=== PATIENT | female | born 1965 | race Caucasian/White ===

== ENCOUNTER 2024-06-08 11:35 | Inpatient (IN) | payer OTHER, SELFPAY ==
[2024-06-08 03:46] VITALS: BP 189/98
[2024-06-08 04:19] LABS: % Basophils 0.6 % (0-2); % Immature Granulocytes 0.2 % (0-0.5); % Lymphocytes 17.3 % (20.5-51.1); % Monocytes 16.4 % (1.7-9.3); % Neutrophils 65.5 % (42.2-75.2); Absolute Lymphocytes 0.9 10^3/uL (1.2-3.4); Absolute Monocytes 0.9 10^3/uL (0.1-0.6); Absolute Neutrophils 3.6 10^3/uL (1.4-6.5); Hematocrit 41.8 % (37.0-47.0); Hemoglobin 14.4 g/dL (12.0-16.0); Mean Corp Hgb Conc. 34.4 g/dL (33.0-37.0); Mean Corpuscular Hgb 31.2 pg (27.0-31.0); Mean Corpuscular Volume 90.5 fL (81.0-99.0); Mean Platelet Volume 10.3 fL (7.4-10.4); Nucleated Red Blood Cells % 0 %; Platelet Count 164 10^3/uL (130-400); Red Blood Cell Count 4.62 10^6/uL (4.20-5.40); Red Cell Dist. Width 12.2 % (11.5-14.5); White Blood Cell Count 5.4 10^3/uL (4.8-10.8)
[2024-06-08 04:25] LABS: COVID-19 Antigen Negative (Negative)
[2024-06-08 04:42] LABS: ALT (SGPT) 18 U/L (0-35); AST (SGOT) 39 U/L (14-36); Alkaline Phosphatase 65 U/L (38-126); Blood Urea Nitrogen 9 mg/dl (7-17); Calcium 8.5 mg/dl (8.4-10.2); Carbon Dioxide 23 mmol/L (22-30); Chloride 92 mmol/L (98-107); Glucose 130 mg/dl (70-99); Potassium 4.1 mmol/L (3.5-5.1); Sodium 123 mmol/L (135-145); Total Bilirubin 0.5 mg/dl (0.2-1.3); Total Protein 6.3 g/dl (6.3-8.2); eGFR > 60.00
--- NOTE | 2024-06-08 07:32 | ED.GENMED ---
History of Present Illness
General
Chief Complaint: Cough
Source: patient
Exam Limitations: none
Time Seen by Provider: 06/08/24 07:23
History of Present Illness
History of Present Illness:
58-year-old female complaining of cough congestion flulike symptoms. Mild weakness.
Past History
Past History
ED Past Medical History: HTN
Review of Systems
Review of Systems
All Other Systems: Not applicable
Respiratory: Reports cough
Cardiac: Reports no symptoms
ABD/GI: Reports no symptoms
Phy Exam
Physical Exam
Physical Exam:
GENERAL: Alert and oriented in no apparent distress
EYE: Orbits normal.
NECK: Supple, no significant adenopathy.
ENT: Pharynx without erythema
CARDIAC: Regular rate and rhythm without any obvious murmurs.
LUNGS: Clear breath sounds,normal
ABDOMEN: Soft, without focal tenderness or distention
NEUROLOGICAL: Alert and oriented , grossly non-focal
SKIN: Warm and dry, no rash or lesion, no discoloration, skin intact.
MUSCULOSKELETAL: No edema,no deformity.Good color
PSYCH: Normal and appropriate interaction.
Course
Orders/Labs/Results
Orders:
Orders
06/08/24 03:48
Electrocardiogram (*1) Urgent
Reason for Study: Shortness of Breath
EKG- Treatment ONCE
Chest [CR Chest - 2 Views ] Urgent
Comment:
Reason For Exam: sob/chest discomfort
06/08/24 04:03
COVID-19 Antigen Urgent
Source: Nasal Swab
Complete Blood Count/With Diff Urgent
Comprehensive Metabolic Panel Urgent
Influenza A+B Rapid Molecular Urgent
LESTER Source: Nasal Swab
Specimen Description:
06/08/24 07:31
IV Insert/Care/Rem.- Treatment PRN
06/08/24 10:10
Lisinopril [Zestril] 40 mg PO NOW STA
Oseltamivir Phosphate [Tamiflu] 75 mg PO NOW STA
Abnormal Lab Results
06/08/24
04:03
MCH 31.2 H pg
(27.0-31.0)
Absolute Lymphs (auto) 0.9 L 10^3/uL
(1.2-3.4)
Absolute Monos (auto) 0.9 H 10^3/uL
(0.1-0.6)
Lymphocytes % 17.3 L %
(20.5-51.1)
Monocytes % 16.4 H %
(1.7-9.3)
Sodium 123 L mmol/L
(135-145)
Chloride 92 L mmol/L
(98-107)
Creatinine 0.4 L mg/dL
(0.6-1.0)
Glucose 130 H mg/dl
(70-99)
AST 39 H U/L
(14-36)
06/08/24 04:03
06/08/24 04:03
Vital Signs
Initial and Last Documented VS:
Initial Vital Signs
Temp Pulse Resp BP Pulse Ox
99.3 F 71 19 189/98 97
06/08/24 03:46 06/08/24 03:46 06/08/24 03:46 06/08/24 03:46 06/08/24 03:46
Last Documented Vital Signs
Temp Pulse Resp BP Pulse Ox
99.3 F 75 16 159/89 98
06/08/24 03:46 06/08/24 10:00 06/08/24 10:00 06/08/24 09:13 06/08/24 07:45
MDM/Problems Addressed
Differential Diagnosis Includes:
Patient with influenza positive. No respiratory distress. However hyponatremic. Suspect she is drinking too much free water. She is not on a diuretic. Warrants inpatient management
*Radiology
Radiology exam reviewed: radiology read reviewed (neg)
*Pulse Oximetry
Patient hypoxic: no
*Critical Care Note
Total Time (30-74mins, 75-104mins- exclusive of procedures): Not Applicable
ED Attending Note
-
Portions of this chart may have been created with voice recognition software.� Occasional wrong word or��sound alike� substitutions may have occurred due to the inherent limitations of voice recognition software.
Discharge Plan
Departure
Patient Disposition: Admit
Date of Disposition: 06/08/24
Time of Disposition: 08:20
Presentation/result/management discussed w/ accepting MD/DO: Hospitalist
Discharge Problem:
Hyponatremia , Influenza
Prescriptions:
No Action
lisinopril 40 mg Tablet
40 mg PO DAILY
Referrals:
Maddy Stone CRNP [Family Provider] -
Interventions
Interventions:
*Risk Screen - Suicide Last Done: 06/08/24 03:46
*General Assessment Last Done: 06/08/24 07:46
*Neglect/Abuse Screening Last Done: 06/08/24 03:46
ED- Fall Risk Assessment Last Done: 06/08/24 08:45
*ED COVID-19 Vaccine History Last Done: 06/08/24 07:46
ED- Pulmonary Assessment Last Done: 06/08/24 07:46
Discharge Date and Time
Print Language: [place]
[2024-06-08 07:45] VITALS: BP 182/83
[2024-06-08 09:13] VITALS: BP 159/89
--- NOTE | 2024-06-08 10:11 | HPS.HSE ---
Family Physician
-
Family Physician: Maddy Stone
Chief Complaint
-
weakness
History of Present Illness
58-year-old female past medical history as below is presenting from home with weakness. Patient went to see her primary doctor on Tuesday for regular checkup. Patient with history of hypertension. Patient states subsequently afterwards she was
feeling weakness with cough and significantly poor appetite. Has fevers and chills at home. Denies any nausea vomiting or diarrhea. States she was drinking 2 large Gatorade bottles at home. States of light yellow-colored urine. Denies
lightheaded and dizziness. Patient with history of tobacco abuse and continues to smoke cigarettes on a daily basis. States takes lisinopril for blood pressure medication. Also states of cough. States of dry cough without any phlegm production.
Medical History
Past Medical History
Past Medical History: Reports Other
Additional Past Medical History:
Primary hypertension
Tobacco abuse daily basis
Past Surgical History: Reports None
Social History
Tobacco: Smoker
Alcohol: Occasional
Living: Alone
Family History
Family History: Not pertinent
Allergies / Home Medications
Allergies reflects when Allergies were last updated in [facility].
Home Medications with original date entered in [facility]
Allergy/Medication List:
Allergies
Allergy/AdvReac Type Severity Reaction Status Date / Time
No Known Allergies Allergy Unverified 06/08/24 03:46
Home Medications
lisinopril 40 mg tablet 40 mg PO DAILY 06/08/24
Review of Systems
-
History Source: Patient
A 12 point ROS was completed and negative except as noted: Yes
Physical Exam
Vital Signs
Vital Signs
Temp Pulse Resp BP Pulse Ox
99.3 F 75 16 159/89 98
06/08/24 03:46 06/08/24 10:00 06/08/24 10:00 06/08/24 09:13 06/08/24 07:45
Physical Exam
General: Well Developed, Well Nourished and No Apparent Distress
HEENT: NormoCephalic, Moist mucous membranes and Atraumatic
Respiratory: Decreased Breath Sounds
Cardiac: S1/S2 and Regular Rhythm; No Murmur or Rub
GI: Soft, Non Tender, Non Distended and Normal Bowel Sounds; No Organomegaly
Rectal: Deferred by Provider
Genito-urinary: No López
Musculoskeletal: No Clubbing, No Cyanosis and No Edema
Skin: No Rash
Neuro: Awake, Alert, Oriented, AO x 3, No Motor Deficits and Nonfocal/grossly intact
Psych: Calm
Laboratory Results
-
06/08/24 04:03
06/08/24 04:03
Laboratory Results
Total Bilirubin 0.5 mg/dl (0.2-1.3) 06/08/24 04:03
AST 39 U/L (14-36) H 06/08/24 04:03
ALT 18 U/L (0-35) 06/08/24 04:03
Alkaline Phosphatase 65 U/L (38-126) 06/08/24 04:03
Data Reviewed
-
Lab Data: Labs Reviewed by me, Discussed with Patient and Discussed with Family
Impression/Plan
-
#Acute influenza A infection
Tylenol as needed
Symptomatic management
Bronchodilators as needed
Currently on room air
Chest x-ray negative for acute infiltrate.
Start patient on Tamiflu
#Hyponatremia
Likely secondary to increase in free water intake
Check urine sodium and urine osmolality and sodium osmolality
Fluid restriction
Repeat BMP
Nephrology evaluation
#Primary hypertension
Continue with lisinopril
Monitor blood pressure
#Daily tobacco abuse
Counseled on complete tobacco cessation.
Patient verbalized understanding
Offered patch nicotine for patient refused
DVT prophylaxis with Lovenox
Discussed with patient older sister at bedside in detail
I spent a total of 80 minutes with the patient or on the floor. More than 50% of this time involved counseling and coordination of care.
[2024-06-08] MEDS: ZESTRIL 40 MG PO (11:16)
[2024-06-08] MEDS: TAMIFLU 75 MG PO ×2 (11:16→20:05)
[2024-06-08 13:26] LABS: Blood Urea Nitrogen 10 mg/dl (7-17); Calcium 8.6 mg/dl (8.4-10.2); Carbon Dioxide 26 mmol/L (22-30); Chloride 87 mmol/L (98-107); Estimated Creatinine Clearance 110 ml/min; Glucose 112 mg/dl (70-99); Potassium 4.1 mmol/L (3.5-5.1); Sodium 123 mmol/L (135-145); eGFR > 60.00
[2024-06-08 13:39] LABS: Osmolality Urine 714 mOsm/kg (300-900); Urine Sodium 164 mmol/L (30-90)
--- NOTE | 2024-06-08 14:12 | W.CON.NEPH ---
Consultation
-
Date/Time Consultation Requested: June 08, 2024 at 12 PM
Date/Time Consultation Performed: June 08, 2024 at 2 PM
Requesting Provider: Dr. Rajan
Performing Provider: Dr. Kane Ramos
Reason for Consultation: Hyponatremia
Medical History
-
Chief Complaint: Shortness of breath
History of Present Illness:
58-year-old female past medical history as below is presenting from home with weakness. Patient went to see her primary doctor on Tuesday for regular checkup. Patient with history of hypertension. Patient states subsequently afterwards she was
feeling weakness with cough and significantly poor appetite. Has fevers and chills at home.
Diagnosed with influenza
Renal consult for hyponatremia of 123
She drinks 15-20 beers daily and smokes cigarettes.
History of hypertension on lisinopril recently increased for hypertension uncontrolled.
Past Medical History
Hypertension tobacco use alcohol use
Social History
Tobacco: Smoker
Alcohol: Chronic Alcoholic
Drug: None
Family History
Family History: Not Pertinent
Allergies / Home Medications
Allergy/AdvReac Type Severity Reaction Status Date / Time
No Known Allergies Allergy Unverified 06/08/24 03:46
�Medication �Instructions �Recorded �Confirmed �Type
lisinopril 40 mg tablet 40 mg PO DAILY 06/08/24 06/08/24 History
Review of Systems
-
Mild shortness of breath
All other systems: Negative unless noted
Physical Exam
Vital Signs
Vital Signs
Temp Pulse Resp BP Pulse Ox
99.3 F 74 16 163/80 98
06/08/24 03:46 06/08/24 11:16 06/08/24 10:00 06/08/24 11:16 06/08/24 07:45
Lab Results
WBC 5.4 10^3/uL (4.8-10.8) 06/08/24 04:03
RBC 4.62 10^6/uL (4.20-5.40) 06/08/24 04:03
Hgb 14.4 g/dL (12.0-16.0) 06/08/24 04:03
Hct 41.8 % (37.0-47.0) 06/08/24 04:03
Plt Count 164 10^3/uL (130-400) 06/08/24 04:03
Sodium 123 mmol/L (135-145) L 06/08/24 13:10
Potassium 4.1 mmol/L (3.5-5.1) 06/08/24 13:10
Chloride 87 mmol/L (98-107) L 06/08/24 13:10
Carbon Dioxide 26 mmol/L (22-30) 06/08/24 13:10
BUN 10 mg/dl (7-17) 06/08/24 13:10
Creatinine 0.4 mg/dL (0.6-1.0) L 06/08/24 13:10
eGFR > 60.00 06/08/24 13:10
Glucose 112 mg/dl (70-99) H 06/08/24 13:10
Calcium 8.6 mg/dl (8.4-10.2) 06/08/24 13:10
Albumin 4.0 g/dl (3.5-5.0) 06/08/24 04:03
Physical Exam
General no acute distress
HEENT no cephalic atraumatic extraocular muscle intact no scleral icterus no JVD neck supple
lungs clear to auscultation bilateral
heart regular S1-S2 positive
abdomen soft nontender positive bowel sounds
extremities no edema pulses present bilateral
Neurologically nonfocal alert and oriented x 3
Skin no lesions no abrasions no petechiae
Psych normal affect no bizarre behavior
Data Reviewed
-
Radiology: Image Personally Visualized and interpreted (Chest x-ray no infiltrate no signs of heart failure)
Assessment/Plan
-
Impression.
Hyponatremia. 123
Influenza.
Alcohol use. 15-20 beers per week
Tobacco use.
Plan.
Sodium 123 on admission repeat again 123.
Urine osmolality 711 with a urine sodium of 116 consistent with SIADH.
I will give 7.5 mg of tolvaptan.
Continue fluid restriction.
Tamiflu
BMP rechecked this evening.
[2024-06-08] MEDS: SAMSCA 7.5 MG PO (15:00)
[2024-06-08 15:12] LABS: Osmolality Serum 260 mOsm/kg (275-300)
[2024-06-08 16:51] VITALS: BMI 28.9
[2024-06-08 16:52] VITALS: BP 185/100
--- NOTE | 2024-06-08 17:00 | PTCARENOTE ---
Received from ED, temp 102.7, BP 185/110. Lungs with diminished breath sounds. Oriented to room, call burnette in reach. Given tylenol, will recheck temp & BP.
[2024-06-08 17:50] VITALS: BP 167/85
[2024-06-08] MEDS: LOVENOX 40 MG SC (18:13)
[2024-06-08] MEDS: TYLENOL 650 MG PO (18:14)
[2024-06-08] MEDS: THIAMINE INJECTION 200 MG IV (20:05)
[2024-06-08 23:06] VITALS: BP 141/90
[2024-06-08] MEDS: ANESTHETIC LOZENGE 1 LOZENGE PO (23:31)
[2024-06-09 07:15] VITALS: BP 111/81
[2024-06-09] MEDS: ZESTRIL 40 MG PO (08:20)
[2024-06-09] MEDS: FOLVITE 1 MG PO (08:21)
[2024-06-09] MEDS: THIAMINE INJECTION 200 MG IV ×2 (08:21→19:50)
[2024-06-09] MEDS: TAMIFLU 75 MG PO ×2 (08:21→19:50)
--- NOTE | 2024-06-09 09:23 | PTCARENOTE ---
Assumed care of pt from previous nurse. Pt denies pain. Pt lungs are diminished, coarse. Pt call burnette is within reach, pt rings nury. will cont to monitor.
--- NOTE | 2024-06-09 10:36 | W.PN.HOSP.TC ---
Today's Communication/Plan
-
Await repeat BMP
Continue with fluid restriction
Continue with Tamiflu
Monitor blood pressure
Monitor p.o. intake
Assessment / Plan
Assessment / Plan
#Acute influenza A infection
Tylenol as needed
Symptomatic management
Bronchodilators as needed
Currently on room air
Chest x-ray negative for acute infiltrate.
Start patient on Tamiflu complete 5d c ourse
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
Likely secondary to increase in free water intake
Status post dose of Samsca. Repeat BMP pending.
Fluid restriction
Nephrology recs
#Primary hypertension
Continue with lisinopril
Monitor blood pressure
#Daily tobacco abuse
Counseled on complete tobacco cessation.
Patient verbalized understanding
Offered patch nicotine for patient refused
#Alcohol usage
MSAS protocol
DVT prophylaxis with Lovenox
Anticipated Discharge: 24 - 48 hours
Subjective/Interval History
-
Date of Service: June 09, 2024
States feeling better
States appetite is slowly improving
Objective Data
-
Labs:
Laboratory Results
06/09/24 06/09/24
00:13 09:00
Sodium Cancelled Pending
Potassium Cancelled Pending
Chloride Cancelled Pending
Carbon Dioxide Cancelled Pending
BUN Cancelled Pending
Creatinine Cancelled Pending
Glucose Cancelled Pending
Calcium Cancelled Pending
Vital Signs:
Vital Signs
Temp Pulse Resp BP Pulse Ox
99.3 F 100 16 111/81 96
06/09/24 07:15 06/09/24 08:20 06/09/24 07:15 06/09/24 08:20 06/09/24 08:30
I&O
06/08/24 06/09/2425
06:59 06:59 06:59
Intake Total 480 / 480 660 / 660
Balance 480 / 480 660 / 660
Physical Exam
-
General: Well Developed and No Apparent Distress
HEENT: Normocephalic, Atraumatic and Moist Mucous Membranes
Respiratory: Clear to Auscultation
Cardiac: Regular Rhythm and S1/S2; Negative Murmur, Rub or Gallop
GI: Soft, Nontender, Nondistended and Normal Bowel Sounds; Negative Organomegaly
Rectal: Deferred by Provider
Musculoskeletal: No Clubbing, No Cyanosis and No Edema
Skin: Negative Rash
Neuro: Awake, Alert, Oriented, AO x 3, No Motor Deficits and Nonfocal/Grossly Intact
Psych: Calm
Data Reviewed
-
Total Time Spent with Patient (in minutes): 55
[2024-06-09 10:58] LABS: Blood Urea Nitrogen 14 mg/dl (7-17); Calcium 8.7 mg/dl (8.4-10.2); Carbon Dioxide 25 mmol/L (22-30); Chloride 93 mmol/L (98-107); Estimated Creatinine Clearance 108 ml/min; Glucose 155 mg/dl (70-99); Potassium 3.9 mmol/L (3.5-5.1); Sodium 128 mmol/L (135-145); eGFR > 60.00
--- NOTE | 2024-06-09 12:22 | W.PN.NEPH.PH ---
Today's Communication / Plan
-
Samsca again x 1 today and otherwise okay for discharge on fluid restriction outpatient
Assessment/Plan
-
Impression.
Hyponatremia. 123
Influenza.
Alcohol use. 15-20 beers per week
Tobacco use.
Plan.
Sodium 123 on admission repeat again 123.
Urine osmolality 711 with a urine sodium of 116 consistent with SIADH.
Continue fluid restriction.
Tamiflu
Sodium improved to 128.
I will give 1 more dose of Samsca today and will be okay for discharge from my standpoint.
-
-
Date of Service: June 09, 2024
CC / HPI / ROS
-
She is without shortness of breath or chest pain.
Sodium has improved.
Labs
-
Labs:
WBC 5.4 10^3/uL (4.8-10.8) 06/08/24 04:03
RBC 4.62 10^6/uL (4.20-5.40) 06/08/24 04:03
Hgb 14.4 g/dL (12.0-16.0) 06/08/24 04:03
Hct 41.8 % (37.0-47.0) 06/08/24 04:03
Plt Count 164 10^3/uL (130-400) 06/08/24 04:03
Sodium 128 mmol/L (135-145) L 06/09/24 09:00
Potassium 3.9 mmol/L (3.5-5.1) 06/09/24 09:00
Chloride 93 mmol/L (98-107) L 06/09/24 09:00
Carbon Dioxide 25 mmol/L (22-30) 06/09/24 09:00
BUN 14 mg/dl (7-17) 06/09/24 09:00
Creatinine 0.6 mg/dL (0.6-1.0) 06/09/24 09:00
eGFR > 60.00 06/09/24 09:00
Glucose 155 mg/dl (70-99) H 06/09/24 09:00
Calcium 8.7 mg/dl (8.4-10.2) 06/09/24 09:00
Albumin 4.0 g/dl (3.5-5.0) 06/08/24 04:03
Physical Exam
-
Vital Signs:
Vital Signs
Temp Pulse Resp BP Pulse Ox
99.3 F 100 16 111/81 96
06/09/24 07:15 06/09/24 08:20 06/09/24 07:15 06/09/24 08:20 06/09/24 08:30
Respiratory:: Bilateral: CTA
Lung Excursion:: Normal
Abdomen:: Soft
Bowel Sounds:: Normal
Extremity Edema:: None: Bilateral:
López Catheter: No
[2024-06-09] MEDS: SAMSCA 15 MG PO (13:10)
[2024-06-09 15:30] VITALS: BP 122/70
--- NOTE | 2024-06-09 15:35 | CM ---
CM reviewed chart, patient seen bedside, patient positive for Influenza A. Patient resides independently in a first floor condo, no steps to enter. Patient is independent with ADLs/IADLs, denies DME, VN, SNF history. Patient confirms PCP Maddy
Bertha, pharmacy [facility], confirms prescription coverage. CM will continue to follow for all discharge planning needs.
Plan; home no needs anticipated.
[2024-06-09] MEDS: LOVENOX 40 MG SC (17:57)
[2024-06-09 23:00] VITALS: BP 120/78
[2024-06-10 05:39] LABS: Blood Urea Nitrogen 21 mg/dl (7-17); Calcium 8.6 mg/dl (8.4-10.2); Carbon Dioxide 30 mmol/L (22-30); Chloride 97 mmol/L (98-107); Estimated Creatinine Clearance 108 ml/min; Glucose 109 mg/dl (70-99); Potassium 4.1 mmol/L (3.5-5.1); Sodium 133 mmol/L (135-145); eGFR > 60.00
[2024-06-10 07:36] VITALS: BP 115/74
[2024-06-10] MEDS: TAMIFLU 75 MG PO (08:20)
[2024-06-10] MEDS: THIAMINE INJECTION 200 MG IV (08:21)
[2024-06-10] MEDS: ZESTRIL 40 MG PO (08:21)
[2024-06-10] MEDS: FOLVITE 1 MG PO (08:21)
--- NOTE | 2024-06-10 10:06 | W.PN.HOSP.TC ---
Today's Communication/Plan
-
dc home
Assessment / Plan
Assessment / Plan
#Acute influenza A infection
Tylenol as needed
Symptomatic management
Bronchodilators as needed
Currently on room air
Chest x-ray negative for acute infiltrate.
Start patient on Tamiflu complete 5d course
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
Likely secondary to increase in free water intake
Status post dose of Samsca x 2. Na at 133. OP repeat bmp.
Fluid restriction
Nephrology recs
#Primary hypertension
Continue with lisinopril
Monitor blood pressure
#Daily tobacco abuse
Counseled on complete tobacco cessation.
Patient verbalized understanding
Offered patch nicotine for patient refused
#Alcohol usage
MSAS protocol
DVT prophylaxis with Lovenox
More than 30 minutes spent in discharge including
Final examination of the patient
Summarizing hospital stay
Instructions for continuing care to all relevant caregivers
Preparation of discharge records, prescriptions, and referral forms
Total time spent (in minutes): 52
Anticipated Discharge: Today
Subjective/Interval History
-
Date of Service: June 10, 2024
feeling better
tolerating diet
Objective Data
-
Labs:
Laboratory Results
06/10/24
04:34
Sodium 133 L
Potassium 4.1
Chloride 97 L
Carbon Dioxide 30
BUN 21 H
Creatinine 0.6
Glucose 109 H
Calcium 8.6
Vital Signs:
Vital Signs
Temp Pulse Resp BP Pulse Ox
98.5 F 86 16 115/74 96
06/10/24 07:36 06/10/24 08:21 06/10/24 07:36 06/10/24 08:21 06/10/24 07:36
I&O
06/09/24 06/10/24 06/11/24
06:59 06:59 06:59
Intake Total 480 / 480 1260 / 1260 240 / 240
Balance 480 / 480 1260 / 1260 240 / 240
Physical Exam
-
General: Well Developed and No Apparent Distress
HEENT: Normocephalic, Atraumatic and Moist Mucous Membranes
Respiratory: Clear to Auscultation
Cardiac: Regular Rhythm and S1/S2; Negative Murmur, Rub or Gallop
GI: Soft, Nontender, Nondistended and Normal Bowel Sounds; Negative Organomegaly
Rectal: Deferred by Provider
Musculoskeletal: No Clubbing, No Cyanosis and No Edema
Skin: Negative Rash
Neuro: Awake, Alert, Oriented, AO x 3, No Motor Deficits and Nonfocal/Grossly Intact
Psych: Calm
--- NOTE | 2024-06-10 10:09 | W.DCSUMMARY ---
Discharge Summary
Discharge Data
Date of Admission: 06/08/24
Date of Discharge: 06/10/24
-
Pending Results: No
Hospital Course
58-year-old female past medical history of tobacco abuse, alcohol abuse who is presenting here with weakness. Patient was found to influenza A infection. Patient was doing increasing amount of Gatorade at home. Patient was started on Tamiflu.
Patient was severely low sodium. Nephrology was consulted. Patient received Samsca. Sodium slowly up trended however low and received second dose of Samsca. Patient sodium stabilized at 133. Patient was stable on room air. Patient was
tolerating diet. Patient be discharged home to continue remaining Tamiflu course. Patient was recommended fluid restriction outpatient repeat BMP with primary doctor. Patient was counseled on tobacco and alcohol cessation.
Discharge Plan
-
Patient Disposition: Home (Routine Discharge)
Discharge Diagnosis/Procedures: Influenza A
Hyponatremia
Condition: Fair
Diet: Low Cholesterol and Restrict fluids to 48 oz
Activity: With assistance and As tolerated
Driving Restrictions: As prior to admission
Blood Work: BMP in 3-5 days via primary doctor.
Instructions: Quitting smoking for adults, Alcohol and your health
Referrals:
Maddy Stone CRNP [Family Provider] - in less than 1 week
Prescriptions:
New
oseltamivir 75 mg Capsule
75 mg PO BID 3 Days Qty: 6 0RF
Continued
lisinopril 40 mg Tablet
40 mg PO DAILY
Discharge Orders:
Discharge Patient (As Directed); Ordered 06/10/24
Ordered By: Mo Rajan
Discharge Date and Time
Print Language: JAPANESE
--- NOTE | 2024-06-10 11:52 | CM ---
CM reviewed chart, patient for discharge today. Patient seen bedside, reports no needs from CM. Patients sister will assist with transportation home. CM will continue to follow for all discharge planning needs.
Plan; home no needs.
[2024-06-10 11:53] VITALS: BP 123/80
== END 2024-06-10 13:14 | disposition home or self-care (01) | DRG 194 ==
LOC: 4 WEST ACU 11:35
PROVIDERS: Emergency Medicine; ADMITTING PHYSICIAN Hospitalist; CONSULT PHYSICIAN Internal Medicine Nephrology; EMERGENCY PHYSICIAN Emergency Medicine; FAMILY PHYSICIAN Nurse Practitioner
DX: J10.1 Influenza due to other identified influenza virus with other respiratory manifestations (principal); E22.2 Syndrome of inappropriate secretion of antidiuretic hormone; I10 Essential (primary) hypertension; F17.200 Nicotine dependence, unspecified, uncomplicated; F10.10 Alcohol abuse, uncomplicated; Z79.899 Other long term (current) drug therapy; Z11.52 Encounter for screening for COVID-19
CPT/HCPCS: 71046; 80048; 80053; 83930; 83935; 84300; 85025; 87502; 87811; 93005; 99285; 99406